=== PATIENT | male | born 1965 | race American Indian/Alaskan Native ===

== ENCOUNTER 2018-03-13 20:24 | Inpatient (IN) | payer MEDICAID ==
[2018-03-13] MEDS ORDERED: ASPIRIN PO ONE (20:39)
[2018-03-13] MEDS ORDERED: ZOFRAN IV ONE (21:09)
[2018-03-13] MEDS ORDERED: SUBLIMAZE IV ONE (21:09)
[2018-03-13] MEDS ORDERED: NITRO-BID 2% TP ONE (21:09)
--- NOTE | 2018-03-13 21:12 | Emergency Department Report ---
HPI - General Chief Complaint: Chest Pain Time Seen by Provider: 03/13/18 20:59 - HPI HPI: Room 22 The patient is a 52-year-old male presenting with chief complaint of chest pain. The patient states the past 6 hours of this constant pain in the chest that feels like a "hot stake" sticking him in the chest. Patient admits to pleurisy and shortness of breath. Patient denies nausea/vomiting or diaphoresis. Patient states he's had 2 syncopal episodes within the past 3 days. The patient states he's been on a cocaine binge for the past 3 days. The patient states he last used cocaine at approximately 14:00. Patient states he had a stress test and cardiac catheterization in 2016 but he does not recall the results Location: Chest Duration: [See above] Quality: Hot stake Severity: "10+/10" Modifying factors: [see above] Context: [see above] Mode of transportation: [not driving] ED Past Medical Hx - Past Medical History Previous Medical History?: Yes Hx Hypertension: Yes Hx Heart Attack/AMI: Yes - Surgical History Past Surgical History?: No - Family History Family history: no significant - Social History Smoking Status: Current Every Day Smoker (1 pack per day) Substance Use Type: Alcohol (frequent), Cocaine (last used today at 14:00) ED Review of Systems ROS: Stated complaint: CHEST PAIN Other details as noted in HPI Constitutional: denies: diaphoresis Eyes: denies: eye pain ENT: denies: throat pain Respiratory: shortness of breath, other (pleurisy) Cardiovascular: chest pain Endocrine: no symptoms reported Gastrointestinal: denies: nausea, vomiting Genitourinary: denies: dysuria Musculoskeletal: denies: back pain Neurological: denies: headache Physical Exam - Physical Exam Vital Signs: Vital Signs 03/13/18 03/13/18 20:31 20:45 Temperature 97.8 F Pulse Rate 101 H Respiratory 16 16 Rate Blood Pressure 135/90 [Left] O2 Sat by Pulse 97 97 Oximetry Physical Exam: GENERAL: The patient is well-developed well-nourished male lying on stretcher not appearing to be in acute distress. [] HEENT: Normocephalic. Atraumatic. Extraocular motions are intact. Patient has moist mucous membranes. NECK: Supple. Trachea midline CHEST/LUNGS: Clear to auscultation. There is no respiratory distress noted. HEART/CARDIOVASCULAR: Regular. There is no tachycardia. There is no gallop rub or murmur. ABDOMEN: Abdomen is soft, nontender. Patient has normal bowel sounds. There is no abdominal distention. SKIN: There is no rash. There is no edema. There is no diaphoresis. NEURO: The patient is awake, alert, and oriented. The patient is cooperative. The patient has normal speech MUSCULOSKELETAL: There is no evidence of acute injury. ED Course Vital Signs 03/13/18 03/13/18 20:31 20:45 Temperature 97.8 F Pulse Rate 101 H Respiratory 16 16 Rate Blood Pressure 135/90 [Left] O2 Sat by Pulse 97 97 Oximetry ED Medical Decision Making - Lab Data Result diagrams: 03/13/18 21:15 03/13/18 21:15 Laboratory Tests 03/13/18 03/13/18 03/13/18 21:15 21:15 21:15 WBC 11.0 RBC 4.73 Hgb 13.2 Hct 40.3 MCV 85 MCH 28 MCHC 33 RDW 14.8 Plt Count 337 Lymph % (Auto) 22.9 [place] % (Auto) 12.3 H Eos % (Auto) 0.2 Baso % (Auto) 0.3 Lymph # 2.5 [place] # 1.4 H Eos # 0.0 Baso # 0.0 Seg Neutrophils % 64.3 Seg Neutrophils # 7.1 D-Dimer 383.28 H Sodium 141 Potassium 4.1 Chloride 97.1 L Carbon Dioxide 30 Anion Gap 18 BUN 15 Creatinine 1.0 Estimated GFR > 60 BUN/Creatinine Ratio 15 Glucose 71 L Calcium 9.6 Troponin T < 0.010 Urine Opiates Screen Urine Methadone Screen Ur Barbiturates Screen Ur Phencyclidine Scrn Ur Amphetamines Screen U Benzodiazepines Scrn Urine Cocaine Screen U Marijuana (THC) Screen Drugs of Abuse Note 03/13/18 21:56 WBC RBC Hgb Hct MCV MCH MCHC RDW Plt Count Lymph % (Auto) [place] % (Auto) Eos % (Auto) Baso % (Auto) Lymph # [place] # Eos # Baso # Seg Neutrophils % Seg Neutrophils # D-Dimer Sodium Potassium Chloride Carbon Dioxide Anion Gap BUN Creatinine Estimated GFR BUN/Creatinine Ratio Glucose Calcium Troponin T Urine Opiates Screen Presumptive negative Urine Methadone Screen Presumptive negative Ur Barbiturates Screen Presumptive negative Ur Phencyclidine Scrn Presumptive negative Ur Amphetamines Screen Presumptive negative U Benzodiazepines Scrn Presumptive positive Urine Cocaine Screen Presumptive positive U Marijuana (THC) Screen Presumptive negative Drugs of Abuse Note Disclamer - EKG Data -: EKG Interpreted by [place] EKG shows normal: sinus rhythm Rate: normal - EKG Data When compared to previous EKG there are: previous EKG unavailable Interpretation: other (no ischemic changes seen) - Radiology Data Radiology results: report reviewed (CT chest), image reviewed (CT chest) [facility] [address] [place] [address] Cat Scan Report Signed Patient: MARIAH SHARMA MR#: [id number] : 1965 Acct:[id number] Age/Sex: 52 / M ADM Date: 03/13/18 Loc: ED Attending Dr: Ordering Physician: RUPERT MURILLO MD Date of Service: 03/13/18 Procedure(s): CT angio chest Accession Number(s): [id number] cc: RUPERT MURILLO MD FINAL REPORT PROCEDURE: CT ANGIO CHEST TECHNIQUE: Computerized tomographic angiography of the chest was performed after the IV injection of iodinated nonionic contrast including image processing. The image data was postprocessed using 2- dimensional multiplanar reformatted (MPR) and 3-dimensional (MIP and/or volume rendered) techniques. HISTORY: chest pain COMPARISON: No prior studies are available for comparison. FINDINGS: Heart and pericardium: Normal. Thoracic aorta: Normal. Pulmonary vasculature: Normal. Lymph nodes: No enlarged thoracic lymph nodes. Lungs: Multiple 4-5 millimeter nodules are noted in the right lung as visualized in images 38, 63 and 79. There are no confluent infiltrates.. Pleural space: No effusion, thickening, or pneumothorax. Musculoskeletal structures: No significant abnormality. Upper abdominal structures: No significant abnormality. IMPRESSION: No acute pulmonary process Multiple small subcentimeter nodules right lung. A 3 to six-month follow-up study may be recommended. Transcribed By: [facility] Dictated By: OMAR ZAPATA Electronically Authenticated By: OMAR ZAPATA Signed Date/Time: 03/13/182300 DD/ 02 TD/TT: 03/13/182302 - Differential Diagnosis ACS, pericarditis, PE, pneumothorax, GERD Critical care attestation.: If time is entered above; I have spent that time in minutes in the direct care of this critically ill patient, excluding procedure time. ED Disposition Clinical Impression: Chest pain, Pulmonary nodule, Cocaine abuse Disposition: OP ADMIT IP TO THIS HOSP Is pt being admited?: Yes Does the pt Need Aspirin: Yes Condition: Fair Instructions: Chest Pain (ED) Referrals: ARIN NEWELL MD [Primary Care Provider] - 3-5 Days Time of Disposition: 23:18 (hospitalist paged (Dr Steph Aburto))
[2018-03-13 21:31] LABS: Basophils % (Auto) 0.3 % (0.0-1.8); Eosinophils % (Auto) 0.2 % (0.0-4.3); Hematocrit 40.3 % (35.5-45.6); Hemoglobin 13.2 gm/dl (11.8-15.2); Lymphocytes # (Auto) 2.5 K/mm3 (1.2-5.4); Lymphocytes % (Auto) 22.9 % (13.4-35.0); Mean Corpuscular HGB Conc 33 % (32-34); Mean Corpuscular Volume 85 fl (84-94); Monocytes # (Auto) 1.4 K/mm3 (0.0-0.8); Monocytes % (Auto) 12.3 % (0.0-7.3); Platelet Count 337 K/mm3 (140-440); Red Blood Count 4.73 M/mm3 (3.65-5.03); Red Cell Distribution Width 14.8 % (13.2-15.2)
[2018-03-13 21:45] LABS: BUN/Creatinine Ratio 15; Blood Urea Nitrogen 15 mg/dL (9-20); Calcium 9.6 mg/dL (8.4-10.2); Hemolysis Index 19
[2018-03-13 22:15] LABS: Amphetamine Screen,Urine PRESUMPTIVE NEGATIVE; Cannabinoid Screen,Urine PRESUMPTIVE NEGATIVE; Methadone Screen,Urine PRESUMPTIVE NEGATIVE; Opiate Screen,Urine PRESUMPTIVE NEGATIVE
[2018-03-13 22:27] LABS: Benzodiazepines Screen,Urine PRESUMPTIVE POSITIVE; Cocaine Screen,Urine PRESUMPTIVE POSITIVE
--- NOTE | 2018-03-13 23:01 | Cat Scan Report ---
FINAL REPORT PROCEDURE: CT ANGIO CHEST TECHNIQUE: Computerized tomographic angiography of the chest was performed after the IV injection of iodinated nonionic contrast including image processing. The image data was postprocessed using 2-dim ensional multiplanar reformatted (MPR) and 3-dimensional (MIP and/or volume rendered) techniques. HISTORY: chest pain COMPARISON: No prior studies are available for comparison. FINDINGS: Heart and pericardium: Normal. Thoracic aorta: Normal. Pulmonary vasculature: Normal. Lymph nodes: No enlarged thoracic lymph nodes. Lungs: Multiple 4-5 millimeter nodules are noted in the right lung as visualized in images 38, 63 and 79. There are no confluent infiltrates.. Pleural space: No effusion, thickening, or pneumothorax. Musculoskeletal structures: No significant abnormality. Upper abdominal structures: No significant abnormality. IMPRESSION: No acute pulmonary process Multiple small subcentimeter nodules right lung. A 3 to six-month follow-up study may be recommended.
--- NOTE | 2018-03-13 23:39 | History and Physical Report ---
History of Present Illness Date of examination: 03/13/18 History of present illness: 52-year-old man with a history of hypertension, coronary artery disease, substance abuse comes emergency room with complaints of chest pain that started today Pain is in the left chest which she describes a burning pain constant, intensity 5/10, no radiation, relief with pain medication given in the ER. Admits toshortness of breath,no nausea, diaphoresis or palpitation. Review of systems Constitutional: no weight loss, chills, fever Ears, eyes, nose, mouth and throat: no nasal congestion, no nasal discharge, no sinus pressure, no vision change, no red eye. Neck: No neck pain or rigidity. Cardiovascular: no palpitations Respiratory: no cough, shortness of breath Gastrointestinal: no abdominal pain hematochezia Genitourinary : no frequency , no hematuria Musculoskeletal: no joint swelling or muscle ache Integumentary: no rash, no pruritis Neurological: no parathesias, no numbness, no focal weakness Endocrine: no cold or heat intolerance, no polyuria or polydipsia Hematologic/Lymphatic: no easy bruising, no easy bleeding, no gland swelling Allergic/Immunologic: no urticaria, no angioedema. PAST MEDICAL HISTORY: hypertension, coronary artery disease PAST SURGICAL HISTORY: None SOCIAL HISTORY: +alcohol, smoke 1 pack daily, cocaine use, last use was yesterday FAMILY HISTORY: Hypertension Medications and Allergies Allergies Allergy/AdvReac Type Severity Reaction Status Date / Time Penicillins Allergy Hives Verified 03/13/18 20:39 Exam - Physical Exam Narrative exam: General Apperance: The patient lying in bed, breathing comfortable HEENT: Normocephalic, atraumatic. Pupils equally round and reactive to light, EOMI, no sclericterus or JVD or thyromegaly or nodule. , no carotid bruit, muco us membranes moist, no exudate or erythema Heart: S1-S2, regular is rhythm Lungs: Clear to auscultation bilaterally, breathing comfortable Abdomen: Positive bowel sounds, soft, nontender, nondistended, no organomegaly Extremities: No edema cyanosis clubbing Skin: no rash, nodule, warm and dry Neuro: cranial nerves 2-12 intact, speech is fluent, motor/sensory intact - Constitutional Vitals: Temp Pulse Resp BP Pulse Ox 97.8 F 101 H 17 125/88 100 03/13/18 20:31 03/13/18 23:31 03/13/18 23:31 03/13/18 23:31 03/13/18 23:31 Results - Labs CBC & Chem 7: 03/13/18 21:15 03/13/18 21:15 Labs: Abnormal lab results 03/13/18 03/13/18 03/13/18 Range/Units 21:15 21:15 21:15 [place] % (Auto) 12.3 H (0.0-7.3) % [place] # 1.4 H (0.0-0.8) K/mm3 D-Dimer 383.28 H (0-234) ng/mlDDU Chloride 97.1 L (98-107) mmol/L Glucose 71 L (75-100) mg/dL - Imaging and Cardiology EKG: image reviewed CT scan - chest: report reviewed Assessment and Plan Assessment Unstable angina Coronary artery disease Hypertension Substance abuse Plan Admit medicine Check cardiac enzymes, consult cardiology Aspirin, percocet, DVT prophylaxis
--- NOTE | 2018-03-14 00:10 | History and Physical Report ---
History of Present Illness Date of examination: 03/13/18 Medications and Allergies Allergies Allergy/AdvReac Type Severity Reaction Status Date / Time Penicillins Allergy Hives Verified 03/13/18 20:39 Active Meds: Active Medications Enoxaparin Sodium (Lovenox) 40 mg SUB-Q QDAY HERI Exam - Constitutional Vitals: Temp Pulse Resp BP Pulse Ox 97.8 F 101 H 17 125/88 100 03/13/18 20:31 03/13/18 23:31 03/13/18 23:31 03/13/18 23:31 03/13/18 23:31 Results - Labs CBC & Chem 7: 03/13/18 21:15 03/13/18 21:15 Labs: Abnormal lab results 03/13/18 03/13/18 03/13/18 Range/Units 21:15 21:15 21:15 [place] % (Auto) 12.3 H (0.0-7.3) % [place] # 1.4 H (0.0-0.8) K/mm3 D-Dimer 383.28 H (0-234) ng/mlDDU Chloride 97.1 L (98-107) mmol/L Glucose 71 L (75-100) mg/dL
[2018-03-14] MEDS ORDERED: ZOFRAN IV PRN (00:38)
[2018-03-14] MEDS ORDERED: TYLENOL PO PRN (00:38)
[2018-03-14] MEDS ORDERED: SODIUM CHLORIDE FLUSH SYRINGE 10 ML IV PRN (00:38)
[2018-03-14] MEDS: PERCOCET 5/325 PO PRN ×4 (01:22→21:00)
[2018-03-14 06:19] LABS: Hematocrit 38.2 % (35.5-45.6); Hemoglobin 12.8 gm/dl (11.8-15.2); Mean Corpuscular HGB Conc 34 % (32-34); Mean Corpuscular Volume 85 fl (84-94); Platelet Count 322 K/mm3 (140-440); Red Blood Count 4.49 M/mm3 (3.65-5.03); Red Cell Distribution Width 15.3 % (13.2-15.2)
[2018-03-14 06:32] LABS: BUN/Creatinine Ratio 19; Blood Urea Nitrogen 17 mg/dL (9-20); Hemolysis Index 6
[2018-03-14 08:13] LABS: Basophils % (Manual) 0 % (0.0-1.8); Eosinophils % (Manual) 0 % (0.0-4.3); Total Cells Counted 100
[2018-03-14 08:14] LABS: Anisocytosis 1+; Platelet Estimate Consistent w Auto
[2018-03-14] MEDS: LOVENOX SUB-Q SCH (09:25)
[2018-03-14] MEDS: BABY ASPIRIN PO SCH (09:25)
[2018-03-14] MEDS: SODIUM CHLORIDE FLUSH SYRINGE 10 ML IV SCH ×2 (09:26→21:01)
--- NOTE | 2018-03-14 10:46 | Consultation ---
Addendum entered and electronically signed by NYLA SOLORZANO MD 03/14/18 10:56: Atypical chest pain ? History of Cath and/or PCI in [facility] No ischemic ECG changes Negative troponin Cocaine abuse Hypertension Neuropathy and chronic leg pain Multiple small lung nodules on CT chest Agree with echo and lexiscan Original Note: History of Present Illness Consult date: 03/14/18 Consult reason: chest pain History of present illness: Patient is a 52 year old man who presents with complaints of chest pain. Patient reports he's been on a cocaine and alcohol binge for the past few days. He reports his chest pain is worse with deep inspiration. He denies unusual shortness of breath and palpitations. Patient gives a history of hypertension, peripheral neuropathy and tobacco abuse. Patient reports his last cardiac workup was done in 2015 while living in [place] but the patient is unsure of the results. 12 lead ECG is sinus rhythm with LVH. Medications and Allergies Allergies Allergy/AdvReac Type Severity Reaction Status Date / Time Penicillins Allergy Hives Verified 03/13/18 20:39 Home Medications Medication Instructions Recorded Confirmed Last Taken Type Diazepam [Valium] 5 mg PO PRN PRN 03/14/18 03/14/18 Unknown History Gabapentin [Neurontin] 800 mg PO TID 03/14/18 03/14/18 Unknown History LORazepam [Ativan] 0.5 mg PO PRN PRN 03/14/18 03/14/18 Unknown History Lisinopril [Zestril TAB] 5 mg PO DAILY 03/14/18 03/14/18 Unknown History Active Meds: Active Medications Acetaminophen (Tylenol) 650 mg PO Q4H PRN PRN Reason: Pain MILD(1-3)/Fever >100.5/PHILIPPE Aspirin (Baby Aspirin) 81 mg PO QDAY [facility] Last Admin: 03/14/18 09:25 Dose: 81 mg Documented by: Enoxaparin Sodium (Lovenox) 40 mg SUB-Q QDAY [facility] Last Admin: 03/14/18 09:25 Dose: 40 mg Documented by: Ondansetron HCl (Zofran) 4 mg IV Q8H PRN PRN Reason: Nausea And Vomiting Oxycodone/Acetaminophen (Percocet 5/325) 1 tab PO Q4H PRN PRN Reason: Pain, Moderate (4-6) Last Admin: 03/14/18 09:25 Dose: 1 tab Documented by: Sodium Chloride (Sodium Chloride Flush Syringe 10 Ml) 10 ml IV BID HERI Last Admin: 03/14/18 09:26 Dose: 10 ml Documented by: Sodium Chloride (Sodium Chloride Flush Syringe 10 Ml) 10 ml IV PRN PRN PRN Reason: LINE FLUSH Physical Examination Vital Signs Temp Pulse Resp BP Pulse Ox 97.8 F 101 H 16 135/90 97 03/13/18 20:31 03/13/18 20:31 03/13/18 20:31 03/13/18 20:31 03/13/18 20:31 General appearance: no acute distress HEENT: Positive: PERRL Cardiac: Positive: Reg Rate and Rhythm Lungs: Positive: Decreased Breath Sounds Neuro: Positive: Grossly Intact Extremities: Absent: edema Results 03/14/18 05:38 03/14/18 05:38 CBC 03/13/18 03/14/18 Range/Units 21:15 05:38 WBC 11.0 6.9 (4.5-11.0) K/mm3 RBC 4.73 4.49 (3.65-5.03) M/mm3 Hgb 13.2 12.8 (11.8-15.2) gm/dl Hct 40.3 38.2 (35.5-45.6) % Plt Count 337 322 (140-440) K/mm3 Lymph # 2.5 (1.2-5.4) K/mm3 [place] # 1.4 H (0.0-0.8) K/mm3 Eos # 0.0 (0.0-0.4) K/mm3 Baso # 0.0 (0.0-0.1) K/mm3 Comprehensive Metabolic Panel 03/13/18 03/14/18 Range/Units 21:15 05:38 Sodium 141 137 (137-145) mmol/L Potassium 4.1 3.9 (3.6-5.0) mmol/L Chloride 97.1 L 97.4 L (98-107) mmol/L Carbon Dioxide 30 28 (22-30) mmol/L BUN 15 17 (9-20) mg/dL Creatinine 1.0 0.9 (0.8-1.5) mg/dL Glucose 71 L 92 (75-100) mg/dL Calcium 9.6 9.0 (8.4-10.2) mg/dL Assessment and Plan Chest pain Hypertension Peripheral neuropathy Tobacco and substance abuse Plan: Echocardiogram and lexiscan for further cardiac evaluation.
--- NOTE | 2018-03-14 12:28 | Progress Note ---
Assessment and Plan Assessment and plan: 52-year-old man who presents with chest pain. He had 3 syncopal episodes in 3 days. He admits that he had a cocaine binge for 3 days leading up to admission Plan ACS ruled out, troponin negative 3. Cardiology input appreciated, for stress test and echo Patient has been counseled on cocaine cessation Blood pressure well controlled Diagnoses Chest pain likely due to cocaine toxicity Cocaine abuse History Interval history: Review of systems Constitutional: No fevers, no malaise, no joint pains CVS: No chest pain, no orthopnea, no dyspnea on exertion, no pedal edema GI: No abdominal pain, no diarrhea, no vomiting, no constipation Respiratory: No shortness of breath, no wheezing, no coughing Hospitalist Physical - Physical exam Narrative exam: General.: Appears well, no distress, nontoxic HEENT: Moist mucous membranes, extraocular muscles intact, no lymphadenopathy Neck: supple Cardiac: S1-S2 heard Lungs: clear to auscultation bilaterally Abdomen: soft , nontender, nondistended, bowel sounds positive Extremities: no edema clubbing or cyanosis Skin: no rash or lesions Neurologic: no gross focal deficits Psych: calm, and cooperative - Constitutional Vitals: Temp Pulse Resp BP Pulse Ox 97.4 F L 98 H 12 127/78 99 03/14/18 03:52 03/14/18 05:00 03/14/18 03:52 03/14/18 03:52 03/14/18 09:42 General appearance: Present: no acute distress Results - Labs CBC & Chem 7: 03/14/18 05:38 03/14/18 05:38 Labs: Laboratory Last Values WBC 6.9 K/mm3 (4.5-11.0) 03/14/18 05:38 RBC 4.49 M/mm3 (3.65-5.03) 03/14/18 05:38 Hgb 12.8 gm/dl (11.8-15.2) 03/14/18 05:38 Hct 38.2 % (35.5-45.6) 03/14/18 05:38 MCV 85 fl (84-94) 03/14/18 05:38 MCH 29 pg (28-32) 03/14/18 05:38 MCHC 34 % (32-34) 03/14/18 05:38 RDW 15.3 % (13.2-15.2) H 03/14/18 05:38 Plt Count 322 K/mm3 (140-440) 03/14/18 05:38 Lymph % (Auto) 22.9 % (13.4-35.0) 03/13/18 21:15 [place] % (Auto) Housing Counselor 03/14/18 05:38 Eos % (Auto) 0.2 % (0.0-4.3) 03/13/18 21:15 Baso % (Auto) 0.3 % (0.0-1.8) 03/13/18 21:15 Lymph # 2.5 K/mm3 (1.2-5.4) 03/13/18 21:15 [place] # 1.4 K/mm3 (0.0-0.8) H 03/13/18 21:15 Eos # 0.0 K/mm3 (0.0-0.4) 03/13/18 21:15 Baso # 0.0 K/mm3 (0.0-0.1) 03/13/18 21:15 Add Manual Diff Complete 03/14/18 05:38 Total Counted 100 03/14/18 05:38 Seg Neutrophils % 64.3 % (40.0-70.0) 03/13/18 21:15 Seg Neuts % (Manual) 60.0 % (40.0-70.0) 03/14/18 05:38 Band Neutrophils % 0 % 03/14/18 05:38 Lymphocytes % (Manual) 24.0 % (13.4-35.0) 03/14/18 05:38 Reactive Lymphs % (Man) 0 % 03/14/18 05:38 Monocytes % (Manual) 16.0 % (0.0-7.3) H 03/14/18 05:38 Eosinophils % (Manual) 0 % (0.0-4.3) 03/14/18 05:38 Basophils % (Manual) 0 % (0.0-1.8) 03/14/18 05:38 Metamyelocytes % 0 % 03/14/18 05:38 Myelocytes % 0 % 03/14/18 05:38 Promyelocytes % 0 % 03/14/18 05:38 Blast Cells % 0 % 03/14/18 05:38 Nucleated RBC % Not Reportable 03/14/18 05:38 Seg Neutrophils # 7.1 K/mm3 (1.8-7.7) 03/13/18 21:15 Seg Neutrophils # Man 4.1 K/mm3 (1.8-7.7) 03/14/18 05:38 Band Neutrophils # 0.0 K/mm3 03/14/18 05:38 Lymphocytes # (Manual) 1.7 K/mm3 (1.2-5.4) 03/14/18 05:38 Abs React Lymphs (Man) 0.0 K/mm3 03/14/18 05:38 Monocytes # (Manual) 1.1 K/mm3 (0.0-0.8) H 03/14/18 05:38 Eosinophils # (Manual) 0.0 K/mm3 (0.0-0.4) 03/14/18 05:38 Basophils # (Manual) 0.0 K/mm3 (0.0-0.1) 03/14/18 05:38 Metamyelocytes # 0.0 K/mm3 03/14/18 05:38 Myelocytes # 0.0 K/mm3 03/14/18 05:38 Promyelocytes # 0.0 K/mm3 03/14/18 05:38 Blast Cells # 0.0 K/mm3 03/14/18 05:38 WBC Morphology Not Reportable 03/14/18 05:38 Hypersegmented Neuts Not Reportable 03/14/18 05:38 Hyposegmented Neuts Not Reportable 03/14/18 05:38 Hypogranular Neuts Not Reportable 03/14/18 05:38 Smudge Cells Not Reportable 03/14/18 05:38 Toxic Granulation Not Reportable 03/14/18 05:38 Toxic Vacuolation Not Reportable 03/14/18 05:38 Dohle Bodies Not Reportable 03/14/18 05:38 Pelger-Huet Anomaly Not Reportable 03/14/18 05:38 Raysa Rods Not Reportable 03/14/18 05:38 Platelet Estimate Consistent w auto 03/14/18 05:38 Clumped Platelets Not Reportable 03/14/18 05:38 Plt Clumps, EDTA Not Reportable 03/14/18 05:38 Large Platelets Not Reportable 03/14/18 05:38 Giant Platelets Not Reportable 03/14/18 05:38 Platelet Satelliting Not Reportable 03/14/18 05:38 Plt Morphology Comment Not Reportable 03/14/18 05:38 RBC Morphology Not Reportable 03/14/18 05:38 Dimorphic RBCs Not Reportable 03/14/18 05:38 Polychromasia Not Reportable 03/14/18 05:38 Hypochromasia Not Reportable 03/14/18 05:38 Poikilocytosis Not Reportable 03/14/18 05:38 Anisocytosis 1+ 03/14/18 05:38 Microcytosis Not Reportable 03/14/18 05:38 Macrocytosis Not Reportable 03/14/18 05:38 Spherocytes Not Reportable 03/14/18 05:38 Pappenheimer Bodies Not Reportable 03/14/18 05:38 Sickle Cells Not Reportable 03/14/18 05:38 Target Cells Not Reportable 03/14/18 05:38 Tear Drop Cells Not Reportable 03/14/18 05:38 Ovalocytes Not Reportable 03/14/18 05:38 Helmet Cells Not Reportable 03/14/18 05:38 [place] Bodies Not Reportable 03/14/18 05:38 [place] Rings Not Reportable 03/14/18 05:38 Erickson Cells Not Reportable 03/14/18 05:38 Bite Cells Not Reportable 03/14/18 05:38 Crenated Cell Not Reportable 03/14/18 05:38 Elliptocytes Not Reportable 03/14/18 05:38 Acanthocytes (Spur) Not Reportable 03/14/18 05:38 Rouleaux Not Reportable 03/14/18 05:38 Hemoglobin C Crystals Not Reportable 03/14/18 05:38 Schistocytes Not Reportable 03/14/18 05:38 Malaria parasites Not Reportable 03/14/18 05:38 Nino Bodies Not Reportable 03/14/18 05:38 Hem Pathologist Commnt No 03/14/18 05:38 D-Dimer 383.28 ng/mlDDU (0-234) H 03/13/18 21:15 Sodium 137 mmol/L (137-145) 03/14/18 05:38 Potassium 3.9 mmol/L (3.6-5.0) 03/14/18 05:38 Chloride 97.4 mmol/L (98-107) L 03/14/18 05:38 Carbon Dioxide 28 mmol/L (22-30) 03/14/18 05:38 Anion Gap 16 mmol/L 03/14/18 05:38 BUN 17 mg/dL (9-20) 03/14/18 05:38 Creatinine 0.9 mg/dL (0.8-1.5) 03/14/18 05:38 Estimated GFR > 60 ml/min 03/14/18 05:38 BUN/Creatinine Ratio 19 % 03/14/18 05:38 Glucose 92 mg/dL (75-100) 03/14/18 05:38 Calcium 9.0 mg/dL (8.4-10.2) 03/14/18 05:38 Troponin T < 0.010 ng/mL (0.00-0.029) 03/14/18 05:38 Urine Opiates Screen Presumptive negative 03/13/18 21:56 Urine Methadone Screen Presumptive negative 03/13/18 21:56 Ur Barbiturates Screen Presumptive negative 03/13/18 21:56 Ur Phencyclidine Scrn Presumptive negative 03/13/18 21:56 Ur Amphetamines Screen Presumptive negative 03/13/18 21:56 U Benzodiazepines Scrn Presumptive positive 03/13/18 21:56 Urine Cocaine Screen Presumptive positive 03/13/18 21:56 U Marijuana (THC) Screen Presumptive negative 03/13/18 21:56 Drugs of Abuse Note Disclamer 03/13/18 21:56
[2018-03-14] MEDS ORDERED: APRESOLINE IV PRN (22:21)
[2018-03-15] MEDS: PERCOCET 5/325 PO PRN ×3 (05:34→14:40)
[2018-03-15] MEDS ORDERED: LEXISCAN IV ONE ×2 (11:54→11:55)
[2018-03-15] MEDS: SODIUM CHLORIDE FLUSH SYRINGE 10 ML IV SCH (13:25)
[2018-03-15] MEDS: LOVENOX SUB-Q SCH (13:25)
[2018-03-15] MEDS: BABY ASPIRIN PO SCH (13:25)
--- NOTE | 2018-03-15 14:16 | Event Note ---
Date: 03/15/18 Patient underwent a Lexiscan thallium stress test today, no ischemia demonstrated, no further cardiac complaints. Patient is stable for cardiac discharge with close outpatient cardiac follow-up in 3-5 days.
--- NOTE | 2018-03-15 15:07 | Discharge Summary ---
Providers - Providers Date of Admission: 03/13/18 23:39 Attending physician: MARLEEN HANKS MD 03/14/18 00:38 Consult to Physician [CONS] Routine Comment: Consulting Provider: KENTON SCOTT Physician Instructions: Reason For Exam: cp Primary care physician: ARIN NEWELL Hospitalization Condition: Fair Hospital course: 52-year-old man who presents with chest pain. He had 3 syncopal episodes in 3 days. He admits that he had a cocaine binge for 3 days leading up to admission Plan ACS ruled out, troponin negative 3. Cardiology input appreciated, stress test and echo unremarkable Patient has been counseled on cocaine cessation Bp meds optimized Diagnoses Chest pain likely due to cocaine toxicity Cocaine abuse HTN Disposition: TO HOME OR SELFCARE Time spent for discharge: 33 mins Core Measure Documentation - Palliative Care Palliative Care/ Comfort Measures: Not Applicable - Core Measures Any of the following diagnoses?: none Exam - Physical Exam Narrative exam: General.: Appears well, no distress, nontoxic HEENT: Moist mucous membranes, extraocular muscles intact, no lymphadenopathy Neck: supple Cardiac: S1-S2 heard Lungs: clear to auscultation bilaterally Abdomen: soft , nontender, nondistended, bowel sounds positive Extremities: no edema clubbing or cyanosis Skin: no rash or lesions Neurologic: no gross focal deficits Psych: calm, and cooperative - Constitutional Vitals: Temp Pulse Resp BP Pulse Ox 97.9 F 103 H 20 156/104 98 03/15/18 08:35 03/15/18 12:27 03/15/18 14:40 03/15/18 12:27 03/15/18 10:00 Plan Follow up with: ARIN NEWELL MD [Primary Care Provider] - 3-5 Days
[2018-03-15 17:10] VITALS: BP 137/99
--- NOTE | 2018-03-15 23:09 | Treadmill Report ---
THALLIUM STRESS TEST LEFT VENTRICLE: Left ventricular chamber size is within normal limits. Perfusion study demonstrates a small fixed basal inferior defect, no significant reversibility on the resting study. Gated analysis demonstrates normal left ventricular systolic function, ejection fraction of 56%. CONCLUSION: Small fixed basal inferior defect, likely due to diaphragmatic attenuation artifact. No demonstrable ischemia on this study. Clinical correlation is recommended. JOB# [id number] CA/NTS
== END 2018-03-15 22:30 | disposition home or self-care (01) | DRG 313 ==
LOC: ED 20:24 → 4A 23:39
PROVIDERS: ADMIT Internal Medicine; ATTEND Internal Medicine
DX: R07.89 Other chest pain (principal); F14.10 Cocaine abuse, uncomplicated; I25.10 Atherosclerotic heart disease of native coronary artery without angina pectoris; G89.29 Other chronic pain; R91.1 Solitary pulmonary nodule; G62.9 Polyneuropathy, unspecified; T40.5X5A Adverse effect of cocaine, initial encounter; I10 Essential (primary) hypertension; F17.210 Nicotine dependence, cigarettes, uncomplicated; Z82.49 Family history of ischemic heart disease and other diseases of the circulatory system; Z88.0 Allergy status to penicillin; I25.2 Old myocardial infarction; Z71.51 Drug abuse counseling and surveillance of drug abuser; Y92.098 Other place in other non-institutional residence as the place of occurrence of the external cause
CPT/HCPCS: 36415; 71275; 78452; 80048; 80307; 84484; 85007; 85025; 85379; 93005; 93010; 93017; 93306; 94760; G0378; A9502; J1650; J2405; J2785; J3010; Q9967